=== PATIENT | male | born 1970 | race Caucasian/White ===

== ENCOUNTER 2023-01-10 23:04 | Emergency (ER) | payer SELFPAY ==
[2023-01-10 23:06] VITALS: BP 185/117; PULSE 103; RESP 19; TEMP 37; O2SAT 100; BMI 31.6
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
[2023-01-10 23:58] VITALS: BP 160/110; PULSE 90; RESP 20; TEMP 36.7; O2SAT 100
== END 2023-01-11 ==
PROVIDERS: Emergency Provider Emergency Medicine
DX: T23.362A Burn of third degree of back of left hand, initial encounter (principal); T23.332A Burn of third degree of multiple left fingers (nail), not including thumb, initial encounter; I10 Essential (primary) hypertension; X08.8XXA Exposure to other specified smoke, fire and flames, initial encounter
CPT/HCPCS: 99283